=== PATIENT | male | born 1995 ===

== ENCOUNTER 2019-02-18 02:48 | Emergency (ER) | payer BC, SELFPAY ==
[2019-02-18] MEDS ORDERED: Ketorolac Tromethamine 30 MG/ML VIAL ONE (03:03)
[2019-02-18 03:26] LABS: Bacteria/HPF 1+ HPF (None Seen); Bilirubin Negative (Negative); Blood, Urine 2+ (Negative); Clarity Turbid (Clear); Glucose, Urine (Dipstick) Normal (Negative); Leukocyte 500 Leu/uL (Negative); Mucous/LPF 1+ LPF (<2+); Nitrite 2+ (Negative); Protein, Urine (Dipstick) 100 mg/dL (Neg-Trace); RBC/HPF 21-50 HPF (0-3); Squamous Epithelial 0-3 HPF (0-3); Urobilinogen Normal mg/dL (Less than 2); WBC/HPF Greater than 50 HPF (0-3)
[2019-02-18 03:36] LABS: Anion Gap 13 mmol/L (10-20); BUN (Urea Nitrogen) 11 mg/dL (8.9-20.6); Calc. Creatinine Clearance 0 mL/min (70-130); Calcium 9.6 mg/dL (7.8-10.44); Carbon Dioxide 27 mmol/L (22-29); Chloride 104 mmol/L (98-107); Estimated GFR-MDRD Greater than 90; Glucose 101 mg/dL (70-105); Potassium 3.7 mmol/L (3.5-5.1); Sodium 140 mmol/L (136-145)
[2019-02-18] MEDS ORDERED: cefTRIAXone\\ROCEPHIN 1 GM VIAL ONE (04:34)
[2019-02-18] MEDS ORDERED: Lidocaine 1% (PF) 30 ML VIAL ONE (04:36)
--- NOTE | 2019-02-18 07:51 | CT ---
PRELIMINARY REPORT/[facility]/EMERGENCY AFTER HOURS PROCEDURE: PROCEDURE INFORMATION: Exam: CT Abdomen and pelvis without contrast Exam date and time: 02/18/2019 3:35 AM Clinical history: 24 years old, male; Abdominal pain; Right; Patient HX: 24 y/o m, with h/o nephrolithiasis, presents to ED C/O x 3 days of worsening R flank pain. TECHNIQUE: Imaging protocol: Computed tomography of the abdomen and pelvis without contrast. COMPARISON: No relevant prior studies available. FINDINGS: Liver: Normal. No mass. Gallbladder and bile ducts: Normal. No calcified stones. No ductal dilation. Pancreas: Normal. No ductal dilation. Spleen: Normal. No splenomegaly. Adrenals: Normal. No mass. Kidneys and ureters: Normal. No hydronephrosis. Stomach and bowel: Mild small bowel wall thickening Appendix: No evidence of appendicitis. Intraperitoneal space: Unremarkable. No free air. No significant fluid collection. Vasculature: Unremarkable. No abdominal aortic aneurysm. Lymph nodes: Unremarkable. No enlarged lymph nodes. Bladder: Unremarkable as visualized. Reproductive: Unremarkable as visualized. Bones/joints: Unremarkable. No acute fracture. Soft tissues: Unremarkable. IMPRESSION: CT findings suggestive of small bowel enteritis. Thank you for allowing us to participate in the care of your patient. Dictated and Authenticated by: Ryan Montoya MD 02/18/2019 4:36 AM Central Time ([place] & [place]) FINAL REPORT: EMERGENT AFTER HOURS NONCONTRAST CT ABDOMEN AND PELVIS: HISTORY: Three days of worsening right flank pain. History of nephrolithiasis. COMPARISON: None. IMPRESSION: 1. No renal or ureteral calculi are seen bilaterally, and there is no evidence of hydronephrosis. 2. No definite acute findings are seen on this nonenhanced CT scan of the abdomen and pelvis. [facility] does note areas of small bowel wall thickening. However, this is an overall nonspecific finding. This could be related to peristalsis. Small bowel enteritis could not be entirely excluded. 3. Findings are in agreement with the preliminary report by [facility]. Transcribed Date/Time: 02/18/2019 7:59 AM
== END 2019-02-18 05:10 | disposition home or self-care (01) ==
LOC: ERS 02:48
DX: N39.0 Urinary tract infection, site not specified (principal); F20.9 Schizophrenia, unspecified; F31.9 Bipolar disorder, unspecified; F17.210 Nicotine dependence, cigarettes, uncomplicated
CPT/HCPCS: 36415; 74176; 80048; 81003; 81015; 96372; J0696; J1885; J2001

== ENCOUNTER 2019-06-04 15:30 | Emergency (ER) | payer SELFPAY ==
[2019-06-04] MEDS ORDERED: Triple Antibiotic Oint 1 GM Packet ONE ×3 (18:27→18:33)
== END 2019-06-04 19:44 ==
LOC: ERS 15:30
DX: T23.301D Burn of third degree of right hand, unspecified site, subsequent encounter (principal); F31.9 Bipolar disorder, unspecified; F20.9 Schizophrenia, unspecified; F17.210 Nicotine dependence, cigarettes, uncomplicated; T52.0X1D Toxic effect of petroleum products, accidental (unintentional), subsequent encounter
CPT/HCPCS: 99282